=== PATIENT | male | born 1955 | race Caucasian/White ===

== ENCOUNTER → 2020-10-07 | Outpatient (CLI) | payer OTHER ==
[~2020-10-07] MED LIST: ALLEGRA ALLERG180 MG PO; ELIQUIS2.5 MG PO; FLEXERIL 10 MG10 MG PO; LOPRESSOR 25 MG25 MG PO; NAPROXEN500 MG PO; PERCOCET 10-321 EACH PO; PHENERGAN 25 MG25 M1 PO; PRINIVIL20 MG PO; SINGULAIR10 MG PO; SYMBICORT 16010.2 GM INH; SYNTHROID200 MCG PO
== END ==
LOC: KOH-I 09:46
DX: M19.012 Primary osteoarthritis, left shoulder (principal)
CPT/HCPCS: 73200

== ENCOUNTER → 2020-11-05 | Outpatient (CLI) | payer OTHER | LOC: EXRD 09:20 | DX: M25.542 Pain in joints of left hand (principal); M25.541 Pain in joints of right hand; M19.042 Primary osteoarthritis, left hand; M19.041 Primary osteoarthritis, right hand | CPT/HCPCS: 73130 ==

== ENCOUNTER → 2022-01-13 | Outpatient (CLI) | payer OTHER | LOC: KOH-I 11:03 | DX: R06.02 Shortness of breath (principal) | CPT/HCPCS: 71046 ==

== ENCOUNTER → 2022-02-02 | Outpatient (CLI) | payer MEDICARE, OTHER | LOC: ECHO 13:15 | DX: R07.89 Other chest pain (principal); R93.89 Abnormal findings on diagnostic imaging of other specified body structures; R06.02 Shortness of breath; I08.1 Rheumatic disorders of both mitral and tricuspid valves; I77.810 Thoracic aortic ectasia | CPT/HCPCS: ECHO; 93306 ==